=== PATIENT | male | born 1980 | race Caucasian/White ===

== ENCOUNTER → 2020-09-21 | Emergency (ER) | payer SELFPAY ==
[~2020-09-21] VITALS: Ht 175.3 cm; Wt 72.6 kg
[2020-09-21 16:22] VITALS: BP 122/77
--- NOTE | 2020-09-21 16:37 | NUR ---
Odalys harden in [facility] - 09/21/20 at 1638 by JIM Patient discharged to home in stable condition. Written and verbal after care instructions given. Patient verbalizes understanding of instruction.
--- NOTE | 2020-09-21 16:38 | NUR ---
discharged patient in custody accompanied by [employer], in no distress.
--- NOTE | 2020-09-21 16:39 | NUR ---
unable to depart due to meditech problem
== END | disposition home or self-care (01) ==
LOC: ER 18:18
DX: F15.10 Other stimulant abuse, uncomplicated (principal); R00.0 Tachycardia, unspecified; Z02.89 Encounter for other administrative examinations

== ENCOUNTER 2021-09-12 13:41 | Emergency (ER) | payer MEDICAID ==
[~2021-09-12] VITALS: Ht 170.2 cm; Wt 59.0 kg
--- NOTE | 2021-09-12 13:51 | NUR ---
TO ER BED 9, BIBS C/O BLE SWELLING AND PAIN X3DAYS, ADMITS TO METH USE, AAOX3, MUTE AND COMMUNICATESBREATHING EVEN AND NON LABORED, AWAITING MD PANDYA
--- NOTE | 2021-09-12 14:08 | NUR ---
SEEN BY DR STRONG
--- NOTE | 2021-09-12 14:10 | NUR ---
SPUDDER AT BEDSIDE FOR BLOOD DRAW
[2021-09-12 14:22] LABS: BASOPHILS % (AUTO) 0.5 % (0.0-2.0); EOSINOPHILS % (AUTO) 1.9 % (0.0-6.0); HEMATOCRIT 30 % (39-51); HEMOGLOBIN 10.6 g/dL (13.5-17.5); LYMPHOCYTES # (AUTO) 1.2 K/uL (0.8-4.8); LYMPHOCYTES % (AUTO) 19.5 % (20.0-44.0); MEAN CORPUSCULAR HGB CONC 35 g/dl (31.0-36.0); MEAN CORPUSCULAR VOLUME 89 fL (80-96); MONOCYTES # (AUTO) 0.6 K/uL (0.1-1.30); MONOCYTES % (AUTO) 9.6 % (2.0-12.0); NEUTROPHILS # (AUTO) 4.2 K/uL (1.8-8.9); NEUTROPHILS % (AUTO) 68.5 % (43.0-81.0); PLATELET COUNT (AUTO) 277 K/uL (150-450); RED BLOOD CELL COUNT(AUTO) 3.41 MIL/uL (4.5-6.0); WHITE BLOOD COUNT (AUTO) 6.2 K/uL (4.3-11.0)
[2021-09-12 14:36] LABS: CALCIUM, SERUM 8.2 mg/dL (8.5-10.1); CARBON DIOXIDE 29 mmol/L (21-32); CHLORIDE 103 mmol/L (98-107); CREATININE 1.1 mg/dL (0.6-1.3); GLUCOSE 96 mg/dL (74-106); POTASSIUM 3.1 mmol/L (3.5-5.1); SODIUM SERUM 142 mmol/L (136-145); UREA NITROGEN, BLOOD 19 mg/dL (7-18)
[2021-09-12 14:50] LABS: ALANINE AMINOTRANSFERASE 29 U/L (12-78); ALBUMIN 2.9 g/dL (3.4-5.0); ALKALINE PHOSPHATASE 68 U/L (46-116); ASPARTATE AMINOTRANSFERASE 33 U/L (15-37); BILIRUBIN,DIRECT 0.2 mg/dL (0.0-0.2); BILIRUBIN,TOTAL 0.5 mg/dL (0.2-1.0); TOTAL PROTEIN, SERUM 6.4 g/dL (6.4-8.2)
--- NOTE | 2021-09-12 14:51 | NUR ---
CALLED [facility] BUT NO ANSWER, WILL TRY AGAIN
[2021-09-12] MEDS ORDERED: CEPH500C2 PO (16:10)
--- NOTE | 2021-09-12 16:44 | NUR ---
Patient discharged to home in stable condition. Written and verbal after care instructions given. Patient verbalizes understanding of instruction.
[2021-09-12 16:45] VITALS: BP 117/79
== END 2021-09-12 16:45 | disposition home or self-care (01) ==
LOC: ER 13:46
DX: R22.43 Localized swelling, mass and lump, lower limb, bilateral (principal); M79.605 Pain in left leg; M79.604 Pain in right leg
CPT/HCPCS: 36415; 71045-TC; 80048-TC; 80076-TC; 83880; 84484-TC; 85025-TC; 93970-TC

== ENCOUNTER 2021-11-21 12:10 | Emergency (ER) | payer SELFPAY ==
[~2021-11-21] VITALS: Ht 175.3 cm; Wt 63.5 kg
[~2021-11-21 12:10] MED LIST: CEPH500C2 PO
[2021-11-21 12:15] VITALS: BP 115/52
--- NOTE | 2021-11-21 13:14 | NUR ---
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
== END 2021-11-21 14:04 | disposition home or self-care (01) ==
LOC: ER 12:15
DX: R07.89 Other chest pain (principal); M79.671 Pain in right foot; M79.672 Pain in left foot; Z60.2 Problems related to living alone
CPT/HCPCS: 71046

== ENCOUNTER 2021-11-28 18:13 | Emergency (ER) | payer SELFPAY ==
[~2021-11-28] VITALS: Ht 175.3 cm; Wt 63.5 kg
[2021-11-28 19:00] VITALS: BP 102/67
[2021-11-28] MEDS ORDERED: ONDANSETRON HCL/PF 4 MG/2 ML VIAL ONE (19:46)
[2021-11-28] MEDS ORDERED: SULFAMETH/TRIMETH 800/160 MG 1 UDTAB TABLET PO ONE (20:00)
[2021-11-28] MEDS ORDERED: SULFAMETH/TRIMETH 800/160 MG 1 UDTAB TABLET ONE (20:35)
[2021-11-28] MEDS ORDERED: SULF1TAB48 PO (20:50)
== END 2021-11-28 21:38 | disposition home or self-care (01) ==
LOC: ER 18:19
DX: L02.411 Cutaneous abscess of right axilla (principal); Z60.2 Problems related to living alone
CPT/HCPCS: 99283; J2405

== ENCOUNTER 2021-12-05 09:34 | Emergency (ER) | payer SELFPAY ==
[~2021-12-05] VITALS: Ht 175.3 cm; Wt 63.5 kg
[~2021-12-05 09:34] MED LIST changes: +SULF1TAB48 PO
[2021-12-05 09:52] VITALS: BP 105/62
[2021-12-05] MEDS ORDERED: SULF1TAB47 PO (10:09)
--- NOTE | 2021-12-05 10:14 | NUR ---
Patient discharged to home/previous living condition in stable condition. Breakfast provided Written and verbal after care instructions given. Patient verbalizes understanding of instruction.
== END 2021-12-05 10:15 | disposition home or self-care (01) ==
LOC: ER 09:37
DX: L02.411 Cutaneous abscess of right axilla (principal); Z60.2 Problems related to living alone

== ENCOUNTER 2025-07-06 09:32 | Inpatient (IN) | payer MEDICAID ==
[~2025-07-06] VITALS: Ht 175.3 cm; Wt 74.5 kg
[~2025-07-06 09:32] MED LIST changes: +SULF1TAB47 PO
[2025-07-06] MEDS ORDERED: ONDANSETRON HCL/PF 4 MG/2 ML VIAL ONE (10:09)
[2025-07-06] MEDS ORDERED: MORPHINE SULFATE INJ 4 MG/ML DISP.SYRIN ONE (10:09)
[2025-07-06] MEDS: IV NS 0.9% 1,000 ML BAG IV ONE (10:24)
[2025-07-06] MEDS: CEFEPIME 1 GM in IV D5W 50 ML IV ONE (10:25)
[2025-07-06] MEDS: MORPHINE SULFATE INJ 2 MG/ML DISP.SYRIN IV ONE (10:25)
[2025-07-06] MEDS: ONDANSETRON HCL/PF 4 MG/2 ML VIAL IVP ONE (10:27)
[2025-07-06] MEDS ORDERED: DARU1TAB3 PO (10:27)
[2025-07-06 10:32] LABS: PLATELET COUNT (AUTO) 357 K/uL (150-450); RED BLOOD CELL COUNT(AUTO) 4.36 MIL/uL (4.5-6.0); RED CELL DISTRIBUTION WIDTH 13.1 % (11.5-15.0); WHITE BLOOD COUNT (AUTO) 10.1 K/uL (4.3-11.0)
[2025-07-06 10:34] LABS: APPEARANCE,URINE CLEAR (CLEAR); BLOOD, URINE NEGATIVE Ery/uL (NEGATIVE); LEUKOCYTE ESTERASE ,URINE NEGATIVE (NEGATIVE); NITRITE, URINE NEGATIVE (NEGATIVE); UGLUCOSE NEGATIVE (NEGATIVE)
[2025-07-06 10:39] LABS: ADD URINE CULTURE YES; SQUAMOUS EPITHELIAL CELL,UR None Seen /HPF (None Seen)
[2025-07-06 10:40] LABS: HYALINE CASTS, URINE Few /LPF (None Seen)
[2025-07-06 10:43] LABS: INR 1.03 (0.91-1.10)
[2025-07-06 10:44] LABS: ASPARTATE AMINOTRANSFERASE 76 U/L (15-37); CALCIUM, SERUM 8.6 mg/dL (8.5-10.1); CREATININE 0.9 mg/dL (0.6-1.3); SODIUM SERUM 130 mmol/L (136-145); TOTAL PROTEIN, SERUM 7.5 g/dL (6.4-8.2); UREA NITROGEN, BLOOD 10 mg/dL (7-18)
[2025-07-06 10:50] LABS: LACTIC ACID 2.2 mmol/L (0.4-2.0)
[2025-07-06] MEDS: VANCOMYCIN 1 GM in IV D5W 250 ML IV ONE (11:20)
[2025-07-06] MEDS: Magnesium 1GM/D5W 100ML PREMIX 100 ML IV SCH (11:25)
[2025-07-06] MEDS: PANTOPRAZOLE 40 MG TABLET.DR PO SCH (12:00)
[2025-07-06] MEDS ORDERED: ACETAMINOPHEN 325 MG TABLET PO PRN (12:00)
[2025-07-06] MEDS ORDERED: DOSING PER PHARMACY-VANCOMYCIN IV XX PRN (12:00)
[2025-07-06] MEDS ORDERED: ONDANSETRON HCL/PF 4 MG/2 ML VIAL IVP PRN (12:00)
[2025-07-06] MEDS ORDERED: MAGNESIUM HYDROXIDE 30 ML UDC PO PRN (12:00)
[2025-07-06] MEDS ORDERED: HYDROCODONE/APAP 10/325MG TABLET PO PRN (12:00)
[2025-07-06] MEDS ORDERED: TEMAZEPAM 15 MG CAPSULE PO PRN (12:00)
[2025-07-06] MEDS ORDERED: Z GUARD REMEDY 4 OZ OINT TP PRN (12:00)
[2025-07-06] MEDS ORDERED: MAG HYDROX/AL HYDROX/SIMETH 30 ML UDC PO PRN (12:00)
[2025-07-06] MEDS ORDERED: POTASSIUM CL. PREMIX PERIPHER. 50 ML ONE (12:31)
[2025-07-06] MEDS: POTASSIUM CL. PREMIX PERIPHER. 50 ML IV SCH (12:45)
[2025-07-06] MEDS ORDERED: POTASSIUM CL. PREMIX PERIPHER. 100 ML ONE (13:29)
[2025-07-06 14:00] VITALS: BP 120/76; TEMP 97.5; TEMP 97.6; O2SAT 95; O2SAT 98
[2025-07-06 15:00] VITALS: BP 117/70; TEMP 98.1; O2SAT 99
[2025-07-06] MEDS: IV NS 0.9% 1,000 ML IV PRN (15:45)
[2025-07-06 20:00] VITALS: BP 125/79; TEMP 207.9; TEMP 97.7; O2SAT 98
[2025-07-06 20:14] VITALS: BP 125/79; TEMP 97.7; O2SAT 98
[2025-07-06] MEDS: CEFEPIME 1 GM in IV D5W 50 ML IV SCH (20:42)
[2025-07-06 21:22] VITALS: BP 125/79; TEMP 97.7; O2SAT 98
[2025-07-06 21:28] VITALS: BP 125/79; TEMP 97.7; O2SAT 98
[2025-07-06] MEDS: VANCOMYCIN HCL 1.25 GM in IV D5W 250 ML IV SCH (23:12)
[2025-07-07 06:25] LABS: PLATELET COUNT (AUTO) 313 K/uL (150-450); RED BLOOD CELL COUNT(AUTO) 4.06 MIL/uL (4.5-6.0); RED CELL DISTRIBUTION WIDTH 13.2 % (11.5-15.0); WHITE BLOOD COUNT (AUTO) 7.5 K/uL (4.3-11.0)
[2025-07-07 06:40] LABS: CALCIUM, SERUM 8.1 mg/dL (8.5-10.1); CREATININE 0.8 mg/dL (0.6-1.3); PHOSPHORUS 2.9 mg/dL (2.5-4.9); SODIUM SERUM 139.0 mmol/L (136-145); UREA NITROGEN, BLOOD 4.0 mg/dL (7-18)
[2025-07-07 06:45] LABS: LDL 53.0 mg/dL (0-99)
[2025-07-07 08:33] VITALS: BP 115/74; TEMP 98.6; O2SAT 99
[2025-07-07] MEDS ORDERED: LIDOCAINE HCL/PF 1% 30 ML SDV IJ ONE (10:00)
[2025-07-07] MEDS: POTASSIUM CHLORIDE 20 MEQ TAB.PRT.SR PO ONE ×3 (10:19→17:55)
[2025-07-07] MEDS: THERAHONEY GEL 1.5 OZ TUBE TP SCH (17:56)
[2025-07-07 18:30] VITALS: BP 125/70; TEMP 98.1; O2SAT 97
[2025-07-07 20:00] VITALS: BP 102/58; TEMP 98.8; O2SAT 96
[2025-07-08 05:56] LABS: PLATELET COUNT (AUTO) 285 K/uL (150-450); RED BLOOD CELL COUNT(AUTO) 3.87 MIL/uL (4.5-6.0); RED CELL DISTRIBUTION WIDTH 13.4 % (11.5-15.0); WHITE BLOOD COUNT (AUTO) 5.6 K/uL (4.3-11.0)
[2025-07-08 06:05] LABS: CALCIUM, SERUM 8.2 mg/dL (8.5-10.1); CREATININE 0.7 mg/dL (0.6-1.3); SODIUM SERUM 138.0 mmol/L (136-145); UREA NITROGEN, BLOOD 6.0 mg/dL (7-18)
[2025-07-08 08:00] VITALS: BP 102/60; TEMP 98.8; O2SAT 98
[2025-07-08] MEDS: SILVER SULFADIAZINE CREAM 25 GM TUBE TP SCH (08:20)
[2025-07-08] MEDS: LIDOCAINE HCL/PF 1% 30 ML SDV IJ ONE (09:06)
[2025-07-08] MEDS: HYDROCODONE/APAP 5/325MG TABLET PO PRN (10:21)
[2025-07-08] MEDS: VANCOMYCIN 1 GM in IV D5W 250ml IV SCH (10:58)
[2025-07-08 16:00] VITALS: BP 106/60; TEMP 98; O2SAT 98
[2025-07-08 20:00] VITALS: BP 111/74; TEMP 98.2; O2SAT 96
[2025-07-08] MEDS: MUPIROCIN OINT 2% 22 GM TUBE NS SCH (21:00)
[2025-07-09 06:11] LABS: PLATELET COUNT (AUTO) 296 K/uL (150-450); RED BLOOD CELL COUNT(AUTO) 4.06 MIL/uL (4.5-6.0); RED CELL DISTRIBUTION WIDTH 13.5 % (11.5-15.0); WHITE BLOOD COUNT (AUTO) 5.8 K/uL (4.3-11.0)
[2025-07-09 06:14] LABS: CALCIUM, SERUM 8.6 mg/dL (8.5-10.1); CREATININE 0.8 mg/dL (0.6-1.3); SODIUM SERUM 138.0 mmol/L (136-145); UREA NITROGEN, BLOOD 7.0 mg/dL (7-18)
[2025-07-09 07:00] VITALS: BP 114/72; TEMP 98.1; O2SAT 97
[2025-07-09] MEDS: MUPIROCIN OINT 2% 22 GM TUBE NS SCH (08:18)
[2025-07-09 16:00] VITALS: BP 119/72; TEMP 98.1; O2SAT 97
[2025-07-09 20:00] VITALS: BP 112/76; TEMP 98.2; O2SAT 98
[2025-07-10 07:26] LABS: CALCIUM, SERUM 8.4 mg/dL (8.5-10.1); CREATININE 0.8 mg/dL (0.6-1.3); SODIUM SERUM 139.0 mmol/L (136-145); UREA NITROGEN, BLOOD 12.0 mg/dL (7-18)
[2025-07-10 07:38] LABS: PLATELET COUNT (AUTO) 336 K/uL (150-450); RED BLOOD CELL COUNT(AUTO) 4.19 MIL/uL (4.5-6.0); RED CELL DISTRIBUTION WIDTH 13.5 % (11.5-15.0); WHITE BLOOD COUNT (AUTO) 7.3 K/uL (4.3-11.0)
[2025-07-10 09:50] VITALS: BP 103/60; TEMP 98.2; O2SAT 98
[2025-07-10] MEDS ORDERED: SILV50CR32 TP (12:19)
[2025-07-10] MEDS ORDERED: SULF1TAB48 PO (12:19)
[2025-07-10] MEDS ORDERED: MUPI22OI7 NS (12:19)
[2025-07-10] MEDS ORDERED: DOXY-326 PO (12:19)
== END 2025-07-10 14:52 | disposition home or self-care (01) | DRG 383 ==
LOC: ER 09:32 → MED 13:19
PROVIDERS: ADMIT Nurse Practitioner Acute Care; ATTEND Nurse Practitioner Acute Care
PROC: 0JBP0ZZ Excision of Left Lower Leg Subcutaneous Tissue and Fascia, Open Approach (ICD-10-PCS; principal; 2025-07-06)
PROC: 0HDRXZZ Extraction of Toe Nail, External Approach (ICD-10-PCS; 2025-07-08)
DX: L03.116 Cellulitis of left lower limb (principal); E87.20 Acidosis, unspecified; E44.1 Mild protein-calorie malnutrition; E87.1 Hypo-osmolality and hyponatremia; E88.09 Other disorders of plasma-protein metabolism, not elsewhere classified; B35.1 Tinea unguium; L03.032 Cellulitis of left toe; L03.031 Cellulitis of right toe; B95.61 Methicillin susceptible Staphylococcus aureus infection as the cause of diseases classified elsewhere; S91.012A Laceration without foreign body, left ankle, initial encounter; E87.6 Hypokalemia; E86.1 Hypovolemia; L60.0 Ingrowing nail; X58.XXXA Exposure to other specified factors, initial encounter; Y92.9 Unspecified place or not applicable; Z59.00 Homelessness unspecified; Z86.16 Personal history of COVID-19; Z79.899 Other long term (current) drug therapy; F17.210 Nicotine dependence, cigarettes, uncomplicated; F15.90 Other stimulant use, unspecified, uncomplicated; Z22.322 Carrier or suspected carrier of Methicillin resistant Staphylococcus aureus; S93.115A Dislocation of interphalangeal joint of left lesser toe(s), initial encounter; L97.329 Non-pressure chronic ulcer of left ankle with unspecified severity; L97.529 Non-pressure chronic ulcer of other part of left foot with unspecified severity; M20.12 Hallux valgus (acquired), left foot; M21.612 Bunion of left foot
CPT/HCPCS: 36415; 71045-TC; 73630-TC; 80048-TC; 80061-TC; 80076-TC; 80202-TC; 81001; 83605-TC; 83735-TC; 84100-TC; 84443-TC; 85025-TC; 85730-TC; 87040-TC; 87070-TC; 87081-TC; 87086-TC; 97110-TC; 97112-TC; 97116-TC; 97530-TC; 97535-TC; A4217; A4223; A6403; G0378; J0692; J2270; J2405; J3373; J3475; J3480; J3490; J7030; J7060